=== PATIENT | male | born 1995 | race Two or more races ===

== ENCOUNTER 2023-07-30 15:45 | Emergency (ER) | payer OTHER ==
[~2023-07-30] VITALS: Ht 170.2 cm; Wt 118.2 kg
[2023-07-30 15:45] VITALS: BP 137/82; PULSE 84; RESP 18; O2SAT 97
[2023-07-30] MEDS ORDERED: IBUP-1454 PO (18:48)
[2023-07-30] MEDS: IBUPROFEN 100MG/5ML ORAL SUSP 100 MG/5 ML UD GT ONE (20:04)
== END 2023-07-30 20:06 | disposition home or self-care (01) ==
LOC: ER 15:45
DX: S20.213A Contusion of bilateral front wall of thorax, initial encounter (principal); Z79.1 Long term (current) use of non-steroidal anti-inflammatories (NSAID); V89.2XXA Person injured in unspecified motor-vehicle accident, traffic, initial encounter; Y93.89 Activity, other specified; Y92.89 Other specified places as the place of occurrence of the external cause; Y99.8 Other external cause status
CPT/HCPCS: 71111